=== PATIENT | female | born 1950 | race Caucasian/White ===

== ENCOUNTER → 2018-10-05 | Outpatient (CLI) | payer MEDICARE, BC ==
--- NOTE | 2018-10-05 11:24 | REP ---
CHEST, TWO VIEWS: HISTORY: Cough. The lungs are clear. The heart is normal in size. The pulmonary vasculature is normal in appearance. The bony structure is intact. IMPRESSION: No acute disease. Electronically Signed by Brad Sweeney MD 10/05/2018 12:47 P
== END ==
LOC: M CLY 10:14
PROVIDERS: ATTEND Physician Assistant
DX: R05 Cough (principal)